=== PATIENT | male | born 1985 | race Caucasian/White ===

== ENCOUNTER 2018-02-24 00:49 | Emergency (ER) | payer SELFPAY ==
[2018-02-24 00:55] VITALS: BP 131/81
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
== END 2018-02-24 01:05 ==
DX: Z04.3 Encounter for examination and observation following other accident (principal); V17.4XXA Pedal cycle driver injured in collision with fixed or stationary object in traffic accident, initial encounter; Y92.410 Unspecified street and highway as the place of occurrence of the external cause; Y99.8 Other external cause status; Y93.89 Activity, other specified